=== PATIENT | male | born 1990 | race Caucasian/White ===

== ENCOUNTER 2018-10-11 22:30 | Emergency (ER) | payer OTHER, MEDICAID ==
[2018-10-11] MEDS: KETOROLAC 60 MG INJ IM (23:31)
== END 2018-10-12 03:47 | disposition home or self-care (01) ==
LOC: FTE 10-12 03:47
DX: S82.831A Other fracture of upper and lower end of right fibula, initial encounter for closed fracture (principal); X58.XXXA Exposure to other specified factors, initial encounter; Y92.9 Unspecified place or not applicable
CPT/HCPCS: 73610; 73610-RT; 73630; 96372; 99284-25